=== PATIENT | male | born 1995 | race Caucasian/White ===

== ENCOUNTER 2017-05-20 08:55 | Emergency (ER) | payer OTHER ==
[2017-05-20] MEDS: KETOROLAC TROMETHAMINE 10 MG TAB PO (11:05)
== END 2017-05-20 11:30 | disposition home or self-care (01) ==
LOC: M ED 08:55
DX: M54.41 Lumbago with sciatica, right side (principal); Z87.891 Personal history of nicotine dependence
CPT/HCPCS: 99283